=== PATIENT | male | born 1965 | race Caucasian/White ===

== ENCOUNTER → 2022-06-28 | Outpatient (CLI) | payer OTHER, SELFPAY ==
[2022-07-02 14:33] LABS: Cotinine Screen Blood <1.0 ng/mL (.); Nicotine Blood <1.0 ng/mL (.)
== END | disposition home or self-care (01) ==
PROVIDERS: Visit Provider Registered Nurse
DX: Z00.00 Encounter for general adult medical examination without abnormal findings (principal)
CPT/HCPCS: 80323; G0480